=== PATIENT | male | born 1960 | race Caucasian/White ===

== ENCOUNTER 2017-05-20 07:19 | Emergency (ER) | payer BC ==
[2017-05-20 07:43] VITALS: BP 158/85
[2017-05-20] MEDS ORDERED: Aspirin Low Dose CHEW TAB* 81 MG PO ONE (07:52)
--- NOTE | 2017-05-20 08:03 | UC ---
Cardiac HPI - HPI Summary HPI Summary: 57 yo male with a 1 1 /2 -2 day hx of constant mild chest pain Fells like he is not getting enough air no n/v no abd pain no diaphoresis pain not positional or exertional no leg pain or swelling no radiation of pain nasal congestion no cough no f/c - History of Current Complaint Chief Complaint: UCChestPain Stated Complaint: SOB,CHEST PAIN Time Seen by Provider: 05/20/17 07:24 Hx Obtained From: Patient Onset/Duration: Sudden Onset, Lasting Days Timing: Constant Initial Severity: Mild Current Severity: None Pain Intensity: 3 Chest Pain Location: Mid Sternal Character: Dull/Aching Aggravating Factor(s): Nothing Alleviating Factor(s): Nothing Associated Signs & Symptoms: Positive: Chest Pain, SOB - +/- - Risk Factors Cardiac Risk Factors: Elevated Lipids - Allergy/Home Medications Allergies/Adverse Reactions: Allergies Allergy/AdvReac Type Severity Reaction Status Date / Time No Known Allergies Allergy Verified 05/20/17 07:33 Home Medications: Home Medications Ibuprofen TAB* [Motrin TAB* 800 MG] 800 mg PO BID PRN 05/20/17 [History Confirmed 05/20/17] PARoxetine HCL TAB* [Paxil TAB*] 10 mg PO DAILY 05/20/17 [History Confirmed ] Stopped Gabapentin Mid 04/201605/20/17 [History] PMH/Surg Hx/FS Hx/Imm Hx Previously Healthy: Yes Endocrine History: Dyslipidemia - Surgical History Surgical History: Yes Surgery Procedure, Year, and Place: left unar nerve 12/2016 [facility] - Family History Known Family History: Positive: Hypertension, Other - A-fib - Social History Alcohol Use: Occasionally Substance Use Type: None Smoking Status (MU): Light Every Day Tobacco Smoker Type: Cigarettes Have You Smoked in the Last Year: Yes - 1-2 cigs daily Review of Systems Constitutional: Negative Skin: Negative Eyes: Negative ENT: Negative Respiratory: Shortness Of Breath Cardiovascular: Chest Pain Gastrointestinal: Negative Genitourinary: Negative Motor: Negative Neurovascular: Negative Musculoskeletal: Negative Neurological: Negative Psychological: Negative Is Patient Immunocompromised?: No All Other Systems Reviewed And Are Negative: Yes Physical Exam Triage Information Reviewed: Yes Appearance: Well-Appearing - walked in briskly with no distess, No Pain Distress , Well-Nourished Vital Signs: Initial Vital Signs Temp 98.5 F 05/20/17 07:37 Pulse 71 05/20/17 07:37 Resp 18 05/20/17 07:37 BP 158/85 05/20/17 07:37 Pulse Ox 100 05/20/17 07:37 Vital Signs Reviewed: Yes Eyes: Positive: Conjunctiva Clear ENT: Positive: Hearing grossly normal, TMs normal. Negative: Nasal drainage, Trismus, Muffled voice, Hoarse voice Dental Exam: Normal Neck: Positive: Supple, Nontender, No Lymphadenopathy Respiratory: Positive: Chest non-tender, Lungs clear, Normal breath sounds, No respiratory distress, No accessory muscle use Cardiovascular: Positive: RRR, No Murmur Abdomen Description: Positive: Nontender, No Organomegaly, Soft Bowel Sounds: Positive: Present Musculoskeletal: Positive: ROM Intact, No Edema Neurological: Positive: Alert Psychological Exam: Normal Skin Exam: Normal Diagnostics - EKG Cardiac Rate: NL Cardiac Rhythm: Sinus: Normal Ectopy: None ST Segment: Normal - LVH - Assessment/Plan Course Of Treatment: pt declines EMS transfer. D/W Dr. Freeman ([facility]) to ER via POV. Given 4 baby ASA prior to transfer - Clinical Impression Provider Diagnoses: chest pain of uncertain cause. elevated blood pressure without diagnosis of hypertension Discharge - Discharge Plan Condition: Stable Disposition: TRANS HIGHER LVL OF CARE FAC Referrals: Michael Ospina DO [Primary Care Provider] - Additional Instructions: I spoke with Dr. Anisha Freeman at the [facility] ER they are expecting you
== END 2017-05-20 08:02 | disposition short-term general hospital (02) ==
LOC: UCCORT 07:19
DX: R07.9 Chest pain, unspecified (principal); R03.0 Elevated blood-pressure reading, without diagnosis of hypertension; E78.5 Hyperlipidemia, unspecified; F17.210 Nicotine dependence, cigarettes, uncomplicated
CPT/HCPCS: 93005; 99212; A9270-GY; G0463